=== PATIENT | male | born 1990 | race Caucasian/White ===

== ENCOUNTER 2022-04-06 06:42 | Inpatient (IN) | payer SELFPAY ==
[2022-04-06 06:46] VITALS: BP 92/64; PULSE 119; RESP 16; TEMP 35.8; O2SAT 98; BMI 24.0
--- NOTE | 2022-04-06 06:55 | EX.ED.SAOD ---
HPI History of Present Illness Chief Complaint: Substance Abuse Informant: patient Narrative Narrative: Patient requesting detox from heroin, fentanyl, methamphetamine. He does not use alcohol. His last use of opiates was around 6 or 7 hours ago and does not feel like he is in withdrawal right now but knows it is coming and wants to get detoxed. He denies any recent illness or injury. Only other symptom is a small wound on his chest in the middle of his surgical scar that has been there for a couple weeks. He was seen at an outside hospital, had a culture done and was placed on doxycycline recently. He states it is not very painful, occasionally a little sore. He had open chest surgery a year or 2 ago because of a bad tricuspid valve as a result of using IV drugs. He did use some IV drugs after his surgery, but he states he has not used any in about a year. He snorts everything now. [facility] Medical History Chest pain Hepatitis IVDU (intravenous drug user) Smoker Substance abuse Home Medications doxycycline monohydrate 100 mg tablet 100 mg PO BID 04/06/22 [History Last Taken Unknown] Allergy/AdvReac Type Severity Reaction Status Date / Time risperidone [From Risperdal] AdvReac Severe Other Verified 04/06/22 06:45 Surgical History H/O tricuspid valve repair Social History (Updated 04/06/22 @ 08:[address] Ora Hinojosa MD) household members: family current occupational status: unemployed Smoking Status: Current every day smoker tobacco type: cigarettes alcohol intake: never substance use type: opiates, IV drugs and methamphetamine ROS ROS ED Constitutional Constitutional ED: Denies chills or fever(s) Eyes Eyes: Denies change in vision or diplopia ENT ENT ED: Denies rhinorrhea or sore throat Cardiovascular Cardiovascular: Denies chest pain or palpitations Respiratory/Chest Respiratory/Chest: Denies cough or dyspnea Gastrointestinal Gastrointestinal: Denies abdominal pain, diarrhea, nausea or vomiting Genitourinary Genitourinary ED: Denies dysuria or hematuria Musculoskeletal Musculoskeletal: Denies back pain or neck pain Integumentary Reports as per HPI and wounds; Denies rash Neurologic Neurologic: Denies headache(s), paresthesias or weakness Psychiatric Psychiatric: Denies anxiety or suicidal thoughts EXAM Physical Exam Const Vital Signs: 04/06/22 06:46 Temperature 96.5 F L Temperature Source Oral Pulse Rate 119 H Respiratory Rate 16 Blood Pressure 92/64 Blood Pressure Mean 73 Pulse Ox 98 Oxygen Delivery Method Room Air Positive well nourished and well developed General Appearance ED: well developed and NAD HEENT Reports moist mucous membranes normocephalic and atraumatic Eyes PERRL and EOMs intact bilaterally Neck full ROM and supple Chest Wall Chest Narrative: Mid sternum surgical scar, small wound in the center of it about 1 cm in diameter, scant amount of blood on it without active discharge, appears to be consistent with pyogenic granuloma. Nontender to superficial palpation. Resp normal respiratory effort and clear to auscultation bilaterally Cardio regular rate, regular rhythm and no murmurs Rate: Negative for tachycardic GI non-tender and non-distended Auscultation: normoactive bowel sounds Palpation: soft Back/Spine no CVA tenderness General Back: other FROM Extremity normal to inspection General Extremety ED: Negative for edema, pulses abnormal or tenderness General Extremity: Negative for edema or pulses abnormal Neuro oriented x3, CN's II-XII intact bilaterally and no sensory deficits noted Sensorium / Orientation: awake and alert Motor Exam: strength 5/5 throughout Skin no rashes or lesions noted and no wounds MDM MDM MDM Narrative Medical decision making narrative: I swabbed the surface of the pyogenic granuloma because it initially it looked like a purulent abscess but it is not. It is nonemergent but may require procedural intervention such as cauterization or excision. Basic labs and urine drug screen, alcohol are ordered, plan is for admission to the detox program. The last time he went through detox was August of this year. Lab Data Attestation: I reviewed the patient's lab results. Discharge Plan Dx/Rx/DC Orders Clinical Impression: Opiate dependence, Polysubstance abuse, Pyogenic granuloma Disposition Disposition: Acute Care [facility]
--- NOTE | 2022-04-06 07:31 | PCM.HP.STD ---
HPI - General General Date of Admission: 04/06/22 Date of Service: 04/06/22 Chief Complaint: Request for medical stabilization for acute opioid withdrawal HPI Narrative ALAN CALLES, is a 31 M who presents requesting for medical stabilization for opioid detox. Patient has past medical history of chronic hepatitis C, not on treatment, history of tricuspid valve repair for infective endocarditis, polysubstance use?uses heroin/fentanyl/meth amphetamines. He has been using this for more than 11 years, on and off. Patient was recently in detox in August 2021. He stated that he remained sober for probably about 120 days. He last used about half a gram of heroin/fentanyl/meth about 1 AM prior to coming to the emergency room. Patient denied any acute symptoms now. He also has a sternal wound/ulcer that has been present for months, recently put on doxycycline. He denies any fever or chills or chest pain Patient's vitals in the ED showed blood pressure of 92/64, heart rate 119, respiratory 16, temperature 96.5 F, oxygen saturation 98% on room air. WBC count was 12.3, hemoglobin 14.1, platelet count 202, with neutrophilia. Sodium is 138, potassium 3.5, chloride 108, bicarbonate 19, BUN 14, creatinine 1.85, no previous creatinine to compare. Total bilirubin was 1.30, AST 47, ALT 98. Urine tox showed amphetamines and ecstasy. Wound cultures taken in the ED. [facility] History (Updated 04/06/22 @ 13:[address] Ora Hinojosa MD) Chest pain Hepatitis IVDU (intravenous drug user) Smoker Substance abuse Home Medications doxycycline monohydrate 100 mg tablet 100 mg PO BID 04/06/22 [History Last Taken Unknown] Allergy/AdvReac Type Severity Reaction Status Date / Time risperidone [From Risperdal] AdvReac Severe Other Verified 04/06/22 06:45 Family History no significant family his no significant family history Surgical History H/O tricuspid valve repair Social History (Updated 04/06/22 @ 08:[address] Ora Hinojosa MD) household members: family current occupational status: unemployed Smoking Status: Current every day smoker tobacco type: e-cigarettes alcohol intake: never substance use type: opiates, IV drugs and methamphetamine ROS ROS Narrative Constitutional: Denies: Anorexia, Chills, Fever, Night Sweats, Weight Change Eyes: Denies: Blurred vision, Cataracts, Conjunctivae Inflammation, Pain, Redness, Vision Change HEENT: Denies: Difficulty Hearing, Difficulty Swallowing, Head Aches, Hearing Changes, Sinus Congestion, Sinus Drainage Cardiovascular: Denies: Chest Pain, Orthopnea, Palpitations Respiratory: Denies: Cough, Shortness of breath at rest, Sputum production Gastrointestinal: Denies: Abdominal Pain, Nausea, Vomiting Genitourinary: Denies: Dysuria Musculoskeletal: Denies: Joint Pain, Joint stiffness, Joint swelling, Joint Tenderness Skin: See HPI Neurological: Denies: Numbness, Tingling, Focal weakness Vital Signs Vital Signs Vital Signs: 04/06/22 06:46 Temperature 96.5 F L Temperature Source Oral Pulse Rate 119 H Respiratory Rate 16 Blood Pressure 92/64 Blood Pressure Mean 73 Pulse Ox 98 Oxygen Delivery Method Room Air Weight Weight: 80.6 kg Body Mass Index (BMI) 24.0 Physical Exam Narrative Physical exam: General: Alert, Oriented x3, Cooperative, appears calm, not pale, no jaundice HEENT: Atraumatic Oral: Moist Mucosa Neck: Supple Lungs: Diminished to auscultation Cardiovascular: HS I+II, regular, no murmurs Abdomen: Bowel Sounds Present, Soft, Non Tender Extremities: No edema Skin: No rashes, No breakdown Neurological: Grossly intact Psych/Mental Status: Appropriate Results Lab / Micro Data Result Diagrams: 04/06/22 07:43 04/06/22 07:30 Assessment & Plan Assessment/Plan (1) Polysubstance (including opioids) dependence with physiol dependence: (2) Pyogenic granuloma of skin: PLAN: Plan 1. Request for medical stabilization for acute opioid withdrawal Admit to [facility], continue to monitor on the Subutex withdrawal protocol Addiction social work consult 2. Pyogenic granuloma, chronic, general surgery consulted, status post bedside debridement, Appreciate recommendations Continue on oral doxycycline 3. Nicotine dependence, renal replacement 4. History of tricuspid valve endocarditis, status post mitral valve repair 5. DVT prophylaxis?low risk, early ambulation recommended Charges/Coding Visit Charges Inpatient E&M: 59972 Init Hosp L3
[2022-04-06 07:44] VITALS: BP 122/71; PULSE 106; RESP 18; TEMP 36.5; O2SAT 100
[2022-04-06] MEDS: Ondansetron ODT 4 MG Tablet 8 MG PO (07:49)
[2022-04-06 07:50] VITALS: BP 122/71; PULSE 110; RESP 18; O2SAT 100
[2022-04-06 07:53] LABS: Absolute Lymphocyte Count 1.07 X10^3/uL (0.83-4.51); Absolute Neutrophil Count 9.9 X10^3/uL (2.0-7.7); Basophil# 0.04 X10^3/uL; Basophil% 0.3 % (0-1); Eosinophil# 0.14 X10^3/uL; Eosinophils% 1.1 % (0-5); Hematocrit 39.8 % (40-54); Hemoglobin 14.1 g/dL (13.0-16.5); Lymphocyte # 1.07 X10^3/ul (0.83-4.51); Lymphocyte % 8.7 % (19-41); Mean Corp Hgb Conc 35.4 g/dL (32-36); Mean Corpuscular Hgb 30.1 pg (27.0-32.0); Monocyte# 1.13 X10^3/uL; Monocyte% 9.2 % (0-10); NRBC Flagged by Analyzer 0 % (0-5); Neutrophil # 9.86 X10^3/uL (2.7-7.7); Neutrophil % 80.2 % (47-70); Platelet Count 202 K/mm3 (150-450); RBC Distribution Width CV 15.3 % (11.6-14.6); RBC Distribution Width SD 47.6 fl (35.1-43.9); Red Blood Count 4.68 M/mm3 (4.6-6.2); White Blood Count 12.3 K/mm3 (4.4-11.0)
[2022-04-06 08:09] LABS: AST(SGOT) 47 U/L (15-37); Alanine Aminotransfer ALT/SGPT 98 U/L (16-61); Albumin, Serum 3.8 g/dL (3.2-5.0); Alkaline Phosphatase 111 U/L (45-117); Anion Gap 11 (5-15); BUN 14 mg/dL (7-18); BUN/Creat Ratio 7.6 RATIO (10-20); Calcium,Total 8.5 mg/dL (8.5-10.1); Chloride 108 mmol/L (98-107); Creatinine, Serum 1.85 mg/dL (0.70-1.30); EST Glomerular Filtration Rate 45 mL/min (>60); Est Glom Filt Rate - Afr Amer 55 mL/min (>60); Globulin 3.9 g/dL (2.2-4.2); Glucose 102 mg/dL (74-106); Potassium 3.5 mmol/L (3.5-5.1); Protein, Total 7.7 g/dL (6.4-8.2); Sodium Level 138 mmol/L (136-145)
[2022-04-06 08:13] LABS: Alcohol, Blood (Medical)-Serum < 3.0 mg/dL
[2022-04-06 08:16] LABS: Amphetamine Urine VISTA POSITIVE (<1000 ng/mL); Barbiturate Urine VISTA NEGATIVE (< 200 ng/mL); Benzodiazepine Urine VISTA NEGATIVE (< 200 ng/mL); Cocaine Urine VISTA NEGATIVE (< 300 ng/mL); Ecstacy Urine VISTA POSITIVE (< 500 ng/mL); Methadone Urine VISTA NEGATIVE (< 300 ng/mL); PCP Urine VISTA NEGATIVE (< 25 ng/mL); THC Urine VISTA NEGATIVE (< 50 ng/mL); Vista UDS pH Range 5
--- NOTE | 2022-04-06 09:12 | PCM.OPRPT ---
Problems Associated Problem List Diagnoses (1) Pyogenic granuloma of skin: Report of Operation Date of Procedure: 04/06/22 Pre-Operative Diagnosis: Pyogenic granuloma Post-Operative Diagnosis: Same Surgery/Procedure Performed:: Superficial debridement of pyogenic granuloma Surgeon: Erwin Kumar manager primary care: None Type of Anesthesia: None Estimated Blood Loss (mL): <1cc Description of Procedure: Center chest area was a centimeter and a half pyogenic granuloma. Cleaned the area off with alcohol. Debrided superficial fat virtually no blood loss was identified. Irrigated out the wound with some peroxide. Placed a wet-to-dry dressing in the wound. Dimensions were 1 and half centimeters by 7 mm deep. This was all superficial. Admit VTE Documentation VTE Present on Admission: No VTE Mechan Device Prophylaxis: None VTE Pharm Prophylaxis ordered?: No Reason prophylaxis not ordered:: Treatment Not Indicated
[2022-04-06 09:17] VITALS: BP 113/67; PULSE 89; RESP 16; TEMP 36.3; O2SAT 100; BMI 23.6
[2022-04-06 15:46] VITALS: BP 123/66; PULSE 79; RESP 18; TEMP 36.8; O2SAT 98
[2022-04-06] MEDS: Doxycycline 100 MG CAPSULE PO (15:48)
[2022-04-06] MEDS: Loperamide 2 MG Capsule PO (18:49)
[2022-04-06] MEDS: Buprenorphine HCl 2 MG TAB.SUBL SL (18:49)
[2022-04-06] MEDS: hydrOXYzine PAM 25 MG Capsule 50 MG PO (18:49)
[2022-04-06] MEDS: Methocarbamol 750 MG Tablet 1500 MG PO (18:49)
[2022-04-06] MEDS: Dicyclomine 10 MG Capsule 20 MG PO (18:49)
[2022-04-06 20:42] VITALS: BP 113/75; PULSE 80; RESP 16; TEMP 37; O2SAT 98
[2022-04-06] MEDS: cloNIDine HCl 0.1 MG Tablet PO (20:57)
[2022-04-07 02:02] VITALS: BP 104/65; PULSE 74; RESP 16; TEMP 36.4; O2SAT 98
[2022-04-07] MEDS: Buprenorphine HCl 2 MG TAB.SUBL SL ×3 (02:05→18:39)
[2022-04-07] MEDS: Methocarbamol 750 MG Tablet 1500 MG PO ×2 (02:05→22:30)
[2022-04-07] MEDS: Doxycycline 100 MG CAPSULE PO ×2 (06:06→15:50)
--- NOTE | 2022-04-07 07:37 | PN.HOSP_ITS ---
Subjective Subjective Seen and examined. Patient has history of IV substance use on and off for last 12 years. He was barely using IV fentanyl and heroin. He also has history of endocarditis with tricuspid valve repair. Patient was diagnosed hepatitis C in the past, had not had any treatment. Objective Data Objective Data Vital Signs: Vital Signs Temp Pulse Resp BP Pulse Ox O2 Del Method 97.6 F L 74 16 104/65 98 Room Air 04/07/22 02:02 04/07/22 02:02 04/07/22 02:02 04/07/22 02:02 04/07/22 02:02 04/07/22 02:02 Oxygen Delivery Method Room Air Weight: 174 lb 9.698 oz Body Mass Index (BMI) 23.6 Lab / Micro Data Result Diagrams: 04/07/22 07:30 04/07/22 08:50 Labs: Laboratory Results - last 24 hr 04/06/22 07:30: Sodium 138, Potassium 3.5, Chloride 108 H, Carbon Dioxide 19.0 L , Anion Gap 11, BUN 14, Creatinine 1.85 H, Estim Creat Clear Calc 63.50, Est GFR (MDRD) Af Amer 55 L, Est GFR (MDRD) Non-Af 45 L, BUN/Creatinine Ratio 7.6 L, Glucose 102, Calcium 8.5, Total Bilirubin 1.30 H, AST 47 H, ALT 98 H, Alkaline Phosphatase 111, Total Protein 7.7, Albumin 3.8, Globulin 3.9, Albumin/Globulin Ratio 1.0 04/06/22 07:30: Ethyl Alcohol < 3.0 04/06/22 07:43: WBC 12.3 H, RBC 4.68, Hgb 14.1, Hct 39.8 L, MCV 85.0, MCH 30.1, MCHC 35.4, RDW Std Deviation 47.6 H, RDW Coeff of Lidya 15.3 H, Plt Count 202, MPV 10.0, Immature Gran % (Auto) 0.500, Neut % (Auto) 80.2 H, Lymph % (Auto) 8.7 L, [place] % (Auto) 9.2, Eos % (Auto) 1.1, Baso % (Auto) 0.3, Absolute Neuts (auto) 9.9 H, Absolute Lymphs (auto) 1.07, Nucleated RBC % 0 04/06/22 07:55: Urine Opiates Screen NEGATIVE, Urine Methadone Screen NEGATIVE, Ur Barbiturates Screen NEGATIVE, Ur Phencyclidine Scrn NEGATIVE, Ur Amphetamines Screen POSITIVE H, MDMA (Ecstasy) Screen POSITIVE H, U Benzodiazepines Scrn NEGATIVE, Urine Cocaine Screen NEGATIVE, U Cannabinoids Screen NEGATIVE, Ur Drug Screen Comment Micro: Microbiology 04/06/22 08:00 Wound - Chest Gram Stain - Final Physical Exam Narrative Complaint of diarrhea, abdominal cramps. Hot and cold feeling. General: Alert, Oriented x3, Cooperative HEENT: Atraumatic, PERRLA, EOMI, Normocephalic Oral: No Gingival or Mucosal Lesions/ Ulcerations Neck: Supple, No JVD, Negative Carotid Bruits Chest/lungs: Surgical dressing over chest is dry. Had superficial debridement of pyogenic granuloma. Air entry equal in bilateral lung bases. No crepitation/rhonchi Cardiovascular: Regular rate, Regular Rhythm, Normal S1, Normal S2, No murmurs Abdomen: Bowel Sounds Present, Soft, Non Tender, Non-Distended : No renal angle tenderness. No suprapubic tenderness. Extremities: No edema, Capillary Refill Less than 3 Seconds Skin: No rashes, No breakdown Musculoskeletal: No Tenderness to Palpation of Joints or Extremities Neurological: Cranial nerves II-XII grossly intact, DTR 2+/4 and Symmetrical, Neuro grossly intact Psych/Mental Status: Flat affect Assessment & Plan Assessment/Plan (1) Polysubstance (including opioids) dependence with physiol dependence: (2) Pyogenic granuloma of skin: PLAN: Plan This is 31-year-old woman with history of chronic IV heroin and IV fentanyl use for last 20 years, changed to snorting in August 2021 admitted for medical stabilization of acute opioid withdrawal syndrome 1. Acute opioid withdrawal syndrome with history of chronic opioid use, dependence and tolerance: Patient admitted to MedSurg floor. On buprenorphine based other supportive medication protocol. Monitor CINA and COWS score. assistant housekeeping manager consulted. 2. Pyogenic granuloma, chronic, general surgery consulted, status post bedside debridement on 04/06. Continue on oral doxycycline 3. Nicotine dependence, renal replacement 4. History of tricuspid valve endocarditis, status post tricuspid valve repair 5. Chronic hepatitis C: Outpatient follow-up for treatment. DVT prophylaxis?low risk, early ambulation recommended Charges/Coding Visit Charges Inpatient E&M: 88963 Subs Hosp L2
[2022-04-07 08:00] VITALS: BP 105/72; PULSE 68; RESP 16; TEMP 36.6; O2SAT 100
[2022-04-07 08:22] LABS: Absolute Lymphocyte Count 1.93 X10^3/uL (0.83-4.51); Absolute Neutrophil Count 4.7 X10^3/uL (2.0-7.7); Basophil# 0.04 X10^3/uL; Basophil% 0.5 % (0-1); Differential Indicated SCAN CRITERIA MET; Eosinophil# 0.46 X10^3/uL; Hematocrit 40.5 % (40-54); Hemoglobin 14.1 g/dL (13.0-16.5); Lymphocyte # 1.93 X10^3/ul (0.83-4.51); Lymphocyte % 25.1 % (19-41); Mean Corp Hgb Conc 34.8 g/dL (32-36); Mean Corpuscular Hgb 30.1 pg (27.0-32.0); Mean Corpuscular Volume 86.4 fL (80-94); Mean Platelet Vol. 11.5 fl (6.2-12.0); Monocyte# 0.53 X10^3/uL; Monocyte% 6.9 % (0-10); NRBC Flagged by Analyzer 0 % (0-5); Neutrophil # 4.72 X10^3/uL (2.7-7.7); Neutrophil % 61.4 % (47-70); POSITIVE COUNT YES; RBC Distribution Width CV 15.5 % (11.6-14.6); RBC Distribution Width SD 48.5 fl (35.1-43.9); Red Blood Count 4.69 M/mm3 (4.6-6.2); White Blood Count 7.7 K/mm3 (4.4-11.0)
[2022-04-07 08:23] LABS: Platelet Estimate MOD DEC (ADEQ)
[2022-04-07 09:25] LABS: ALB/GLOB Ratio 0.8 RATIO (0.9-2.4); AST(SGOT) 36 U/L (15-37); Alanine Aminotransfer ALT/SGPT 77 U/L (16-61); Albumin, Serum 3.3 g/dL (3.2-5.0); Alkaline Phosphatase 121 U/L (45-117); Anion Gap 6 (5-15); BUN 17 mg/dL (7-18); BUN/Creat Ratio 12.1 RATIO (10-20); Calcium,Total 8.9 mg/dL (8.5-10.1); Chloride 111 mmol/L (98-107); EST Glomerular Filtration Rate 63 mL/min (>60); Est Glom Filt Rate - Afr Amer 76 mL/min (>60); Estimated Creatinine Clearance 83.91 ml/min; Glucose 101 mg/dL (74-106); Potassium 3.5 mmol/L (3.5-5.1); Protein, Total 7.3 g/dL (6.4-8.2); Sodium Level 141 mmol/L (136-145)
--- NOTE | 2022-04-07 10:31 | WOUNDNOTE ---
wound photo: mid upper chest
[2022-04-07 15:46] VITALS: BP 104/65; PULSE 65; RESP 16; TEMP 36.8; O2SAT 98
[2022-04-07] MEDS: Acetaminophen 500 MG Tablet PO (15:53)
[2022-04-07 22:15] VITALS: BP 121/70; PULSE 64; RESP 16; TEMP 36.6; O2SAT 98
[2022-04-07] MEDS: Dicyclomine 10 MG Capsule 20 MG PO (22:30)
[2022-04-07] MEDS: cloNIDine HCl 0.1 MG Tablet PO (22:30)
[2022-04-08 03:15] VITALS: BP 111/63; PULSE 55; RESP 16; TEMP 36.4; O2SAT 98
[2022-04-08] MEDS: Buprenorphine HCl 2 MG TAB.SUBL SL ×3 (03:19→18:00)
[2022-04-08] MEDS: Doxycycline 100 MG CAPSULE PO ×2 (06:18→17:59)
[2022-04-08 08:31] VITALS: BP 116/67; PULSE 60; RESP 18; TEMP 36.6; O2SAT 100
[2022-04-08 10:00] VITALS: PULSE 80
[2022-04-08] MEDS: cloNIDine HCl 0.1 MG Tablet PO ×2 (10:38→18:00)
[2022-04-08] MEDS: Gabapentin 300 MG Capsule PO (10:38)
--- NOTE | 2022-04-08 13:50 | PN.HOSP_ITS ---
Subjective Subjective Patient has mild anxiety and restlessness. Semisolid. Symptoms gradually getting better. Objective Data Objective Data Vital Signs: Vital Signs Temp Pulse Resp BP Pulse Ox O2 Del Method 97.8 F 80 18 116/67 100 Room Air 04/08/22 08:31 04/08/22 10:00 04/08/22 08:31 04/08/22 08:31 04/08/22 08:31 04/08/22 08:31 Oxygen Delivery Method Room Air Weight: 174 lb 9.698 oz Body Mass Index (BMI) 23.6 Lab / Micro Data Result Diagrams: 04/07/22 07:30 04/07/22 08:50 Micro: Microbiology 04/06/22 08:00 Wound - Chest Gram Stain - Final 04/06/22 08:00 Wound - Chest Wound Culture - Final Meth. resistant Staph. aureus Physical Exam Narrative Physical exam General: Alert, Oriented x3, Cooperative HEENT: Atraumatic, PERRLA, EOMI, Normocephalic Oral: No Gingival or Mucosal Lesions/ Ulcerations Neck: Supple, No JVD, Negative Carotid Bruits Chest/lungs: Surgical dressing over chest is dry. Air entry equal in bilateral lung bases. No crepitation/rhonchi Cardiovascular: Regular rate, Regular Rhythm, Normal S1, Normal S2, No murmurs Abdomen: Bowel Sounds Present, Soft, Non Tender, Non-Distended : No renal angle tenderness. No suprapubic tenderness. Extremities: No edema, Capillary Refill Less than 3 Seconds Skin: No rashes, No breakdown Musculoskeletal: No Tenderness to Palpation of Joints or Extremities Neurological: Cranial nerves II-XII grossly intact, DTR 2+/4 and Symmetrical, Neuro grossly intact Psych/Mental Status: Flat affect Assessment & Plan Assessment/Plan (1) Polysubstance (including opioids) dependence with physiol dependence: (2) Pyogenic granuloma of skin: PLAN: Plan This is 31-year-old woman with history of chronic IV heroin and IV fentanyl use for last 20 years, changed to snorting in August 2021 admitted for medical stabilization of acute opioid withdrawal syndrome 1. Acute opioid withdrawal syndrome with history of chronic opioid use, dependence and tolerance: Patient admitted to MedSurg floor. On buprenorphine based other supportive medication protocol. Monitor CINA and COWS score. medicine and health service manager consulted. 04/08: Mild diarrhea getting better. CINA score 3 2. Pyogenic granuloma, chronic, general surgery consulted, status post bedside debridement on 04/06. Continue on oral doxycycline 3. Nicotine dependence, renal replacement 4. History of tricuspid valve endocarditis, status post tricuspid valve repair 5. Chronic hepatitis C: Outpatient follow-up for treatment. DVT prophylaxis?low risk, early ambulation recommended Charges/Coding Visit Charges Inpatient E&M: 81557 Subs Hosp L2
--- NOTE | 2022-04-08 15:54 | CHAPLAIN ---
Type of Pastoral Visit _x__ Initial Visit ___ Follow-up Visit ___ On-call Visit ___ General Patient Visit ___ Spiritual Assessment ___ Family Conference ___ Bereavement ___ Rapid Response ___ Code Blue ___ Other (describe below) Pastoral Care Referral From _x__ Patient ___ Family ___ Nurse ___ Physician ___ Cable Tool Operator ___ Insole Reinforcer ___ Other (describe below) Sacrament/Intervention ___ Active listening ___ Anointing ___ Jewish ___ Bereavement ___ Communion ___ Petra exploration ___ ___ Life review ___ Prayer ___ Reconciliation ___ Sacrament of Sick ___ Supportive presence ___ Wedding ___ Other (describe below) Pastoral Comments patient awakens easily to his name when entering room; pt states that he needs to sleep if possible but visit tomorrow would be welcome; prayer is also welcomed
[2022-04-08 16:00] VITALS: BP 113/68; PULSE 70; RESP 18; TEMP 36.6; O2SAT 99
[2022-04-08] MEDS: Methocarbamol 750 MG Tablet 1500 MG PO (18:00)
[2022-04-08 21:07] VITALS: BP 115/62; PULSE 62; RESP 18; TEMP 36.6; O2SAT 100
[2022-04-09 03:23] VITALS: BP 117/75; PULSE 60; RESP 18; TEMP 36.4; O2SAT 99
[2022-04-09] MEDS: Doxycycline 100 MG CAPSULE PO (06:32)
[2022-04-09] MEDS: Buprenorphine HCl 2 MG TAB.SUBL SL (06:32)
--- NOTE | 2022-04-09 09:02 | DCINST_ITS ---
Discharge Instructions Diet Discharge Diet: No restrictions Activity Discharge Activity: Return to Normal Activity and May Not Drive Weight Bearing Status: Weight bearing as tolerated Dressing / Incision Call your doctor if you observe: Fever of 101 or Higher, Coldness, Increased Pain, Numbness or Tingling, Change in Color, Inability to urinate, Inability to have a bowel movement, Shortness of breath, Dizziness, Fainting spells, Swelling in the ankles, Chest pain and Calf discomfort Follow Up Care Test Results: Test results from this visit will be discussed in further detail at your follow- up appointment, if applicable. Discharge Plan Admission Admit Date/Time: 04/06/22 07:27 Primary Reason for Your Visit: Acute opioid withdrawal syndrome Attending Provider: Kevin Raman Primary Care Provider: Care ,Haley Primary Consulting Providers: Erwin Kumar ; Ora Hinojosa Discharge Orders/Prescriptions Prescriptions: New nicotine 21 mg/24 hr Patch 24 Hour 21 mg transdermal DAILY Qty: 30 0RF Continued doxycycline monohydrate 100 mg Tablet 100 mg PO BID Qty: 10 0RF Referrals / Follow Up: Care Physician,No Primary [Primary Care Provider] - Disposition Disposition (needs filled in before D/C Order can be placed): Home, Self Care
[2022-04-09 09:15] VITALS: BP 103/61; PULSE 62; RESP 18; TEMP 36.3; O2SAT 97
--- NOTE | 2022-04-09 09:18 | DS.PCM_ITS ---
Providers Date of Admission: 04/06/22 Date of Discharge: 04/09/22 Primary Care Physician: Haley Primary Care Phys Consultations 04/06/22 09:15 Consult: Onc/Wound/brewery cellar worker Routine Comment: Reason for Consult:: Wound on chest Comments:: Send patient to wound center post discharge 04/06/22 09:26 Consult: General Surgery Routine Consulting Provider: Erwin Kumar Reason for Consult: Sternal pyogenic granuloma EMERGENT Consult: No MD Notified: Yes Date Notified: 04/06/22 Time Notified: 08:14 Method of Notification: Verbal Reason For Visit: REQUEST FOR MEDICAL STABILISATION Diagnosis Discharge Diagnosis (1) Polysubstance (including opioids) dependence with physiol dependence: Status: Acute Code(s): F19.20 - Other psychoactive substance dependence, uncomplicated (2) Pyogenic granuloma of skin: Status: Acute Code(s): L98.0 - Pyogenic granuloma Medications at Discharge Home Medications doxycycline monohydrate 100 mg tablet 100 mg PO BID #10 tabs 04/09/22 nicotine 21 mg/24 hr daily transdermal patch 21 mg transdermal DAILY #30 ea 04/09/22 Hospital Course Summary of Care Provided Hospital Course: This is 31-year-old woman with history of chronic IV heroin and IV fentanyl use for last 20 years, changed to snorting in August 2021 admitted for medical stabilization of acute opioid withdrawal syndrome 1.? Acute opioid withdrawal syndrome with history of chronic opioid use, dependence and tolerance: Patient admitted to MedSurg floor.? On buprenorphine based other supportive medication protocol.? Monitor CINA and COWS score.? lands resource manager consulted. 04/08: Mild diarrhea getting better.? CINA score 3 2. Pyogenic granuloma, chronic, general surgery consulted, status post bedside debridement on 04/06. Wound cultures growing MRSA. As patient has been on doxycycline before admission therefore antibiotic changed to Bactrim DS 1 tablet twice daily for 5 more days. On wound review, mild serous discharge with healthy subcutaneous tissue. 3. Nicotine dependence, renal replacement 4.? History of tricuspid valve endocarditis, status post tricuspid valve repair 5.? Chronic hepatitis C: Outpatient follow-up for treatment. ? DVT prophylaxis?low risk, early ambulation recommended Discharge medication reconciliation done. Discharge follow-up instructions completed. Discharge process discussed with the patient and all questions were answered to patient's satisfaction. Prescriptions given for doxycycline and nicotine patch. Advised to follow-up with outpatient opioid/substance use rehab Total time spent, exact 35 minutes on discharge meds reconciliation, examination, coordination of care with nurses and ancillary staff, review of imaging and blood test and discussion with the patient on follow-up instructions. Physical Exam Narrative Seen and examined on the day of discharge. Physical exam General: Alert, Oriented x3, Cooperative HEENT: Atraumatic, PERRLA, EOMI, Normocephalic Oral: No Gingival or Mucosal Lesions/ Ulcerations Neck: Supple, No JVD, Negative Carotid Bruits Chest/lungs: Lower sternal region chest pain Air entry equal in bilateral lung bases. No crepitation/rhonchi Cardiovascular: Regular rate, Regular Rhythm, Normal S1, Normal S2, No murmurs Abdomen: Bowel Sounds Present, Soft, Non Tender, Non-Distended : No renal angle tenderness. No suprapubic tenderness. Extremities: No edema, Capillary Refill Less than 3 Seconds Skin: Wound reviewed over sternal region. Serous discharge with healthy subcutaneous tissue. Musculoskeletal: No Tenderness to Palpation of Joints or Extremities Neurological: Cranial nerves II-XII grossly intact, DTR 2+/4 and Symmetrical, Neuro grossly intact Psych/Mental Status: Normal affect Weight / BMI Weight Weight: 174 lb 9.698 oz Body Mass Index (BMI) 23.6 ABG / Lab / Microbiology Data Result Diagrams: 04/07/22 07:30 04/07/22 08:50 Microbiology: Microbiology 04/06/22 08:00 Wound - Chest Gram Stain - Final 04/06/22 08:00 Wound - Chest Wound Culture - Final Meth. resistant Staph. aureus D/C Instructions Discharge Diet: No restrictions Weight Bearing Status: Weight bearing as tolerated Call your doctor if you observe: Fever of 101 or Higher, Coldness, Increased Pain, Numbness or Tingling, Change in Color, Inability to urinate, Inability to have a bowel movement, Shortness of breath, Dizziness, Fainting spells, Swelling in the ankles, Chest pain and Calf discomfort Meaningful Use Info Meaningful Use Diagnoses (Choose all that apply): None applicable Discharge Plan Admission Admit Date/Time: 04/06/22 07:27 Primary Reason for Your Visit: Acute opioid withdrawal syndrome Attending Provider: Kevin Raman Primary Care Provider: Care Physician,No Primary Consulting Providers: Erwin Kumar ; Ora Hinojosa Discharge Orders/Prescriptions Prescriptions: New nicotine 21 mg/24 hr Patch 24 Hour 21 mg transdermal DAILY Qty: 30 0RF Continued doxycycline monohydrate 100 mg Tablet 100 mg PO BID Qty: 10 0RF Referrals / Follow Up: Care Physician,No Primary [Primary Care Provider] - Disposition Disposition (needs filled in before D/C Order can be placed): Home, Self Care Charges/Coding Visit Charges Inpatient E&M: 36777 Disch Hosp
[2022-04-09 10:00] VITALS: PULSE 70
--- NOTE | 2022-04-09 10:52 | CASEMGMT ---
Social Work Consult: Self Pay Referral source: Self referral due to self pay status This social sciences chair met with patient in room. Introduced self and social sciences chair role. Patient agreeable to speak with this social sciences chair. This social sciences chair broached topic of self pay status for patient. Patient reports to have had Medicaid in the past but I must have let is . Patient reports to still have food stamps. Patient reports to be aware of how to apply for Medicaid. This social sciences chair did provided patient with Medicaid application and resources and free clinics that are local to patient. This social sciences chair also provided patient with information on prescription assistance programs. This social sciences chair encouraged patient to complete Medicaid application and this can assist patient in medical bills for the future as well as this medical stay. Patient voiced understanding and plan to complete medicaid application. Patient denies any other needs/concerns and plans to follow up with an outpatient program for substance abuse in [place]. Patient reports to have worked with this program in the past and it has helped. Patient reports to have transportation to home but can't get a ride until 4 today. This social sciences chair provided active support and listening. No further social work needs identified or indicated. PLAN: D/C to the community for follow up with substance abuse supports. Martin TAN, LISA
--- NOTE | 2022-04-09 12:11 | CHAPLAIN ---
Type of Pastoral Visit ___ Initial Visit _x__ Follow-up Visit ___ On-call Visit ___ General Patient Visit ___ Spiritual Assessment ___ Family Conference ___ Bereavement ___ Rapid Response ___ Code Blue ___ Other (describe below) Pastoral Care Referral From _x__ Patient ___ Family ___ Nurse ___ Physician ___ Signal Maintainer ___ Mobile Electronics Installer ___ Other (describe below) Sacrament/Intervention _x__ Active listening ___ Anointing ___ Orthodox ___ Bereavement ___ Communion ___ Petra exploration ___ ___ Life review _x__ Prayer ___ Reconciliation ___ Sacrament of Sick _x__ Supportive presence ___ Wedding ___ Other (describe below) Pastoral Comments return to patient today after he requested come back tomorrow on visit yesterday when he was trying to sleep; pt is awake now and watching TV; pt says he is leaving soon and will follow up with IOP in [place]; pt states that he has had a season of being clean and that he has support among his family including mother and sisters; pt is affirmed for continual work to beat the addiction and to seek out support and strengthen his petra; pt identifies self as a Bahai and welcomes prayer; visit included asking the patient questions which he answered willingly; pt does not engage much on his own for conversation;
--- NOTE | 2022-04-09 14:14 | PHA.DC.MC ---
Pharmacy Service has performed discharge medication reconciliation and counseling for this patient. Patient does not want nicotine patch and refused to be counseled on the medication. 1. BACTRIM DS 1T PO BID X 5 DAYS The patient's discharge medication list was reviewed for discrepancies and discrepancies were resolved. Home Medications nicotine 21 mg/24 hr daily transdermal patch 21 mg transdermal DAILY #30 ea 04/09/22 sulfamethoxazole 800 mg-trimethoprim 160 mg tablet (Bactrim DS) 1 tab PO BID #10 tabs 04/09/22 The patient was counseled on the following discharge medications and changes in medications for homegoing were reviewed. The Reason for Use, instructions for use, and potential side effects were reviewed for all new medications. The patient's questions regarding all of their medications were answered. The patient was able to verbally demonstrate an understanding of their discharge medications. Patient counseled by pharmacy sales representativePino.
--- NOTE | 2022-04-09 14:26 | CASEMGMT ---
Social Work SW was approached by pt nurse who asked about assistance for the patient to get prescriptions. SW called the pharmacy to check on one time prescription benefit for pt and they explained only one of his px would be covered for a total of $11.63. Sw spoke to pt and he stated he could cover this and would not need the benefit at this time. Pt stated he did not want the nicotine patches for the other prescription anyway. MIS Laguna
== END 2022-04-09 16:30 | disposition home or self-care (01) | DRG 897 ==
LOC: ED 07:38 → MS3 08:49
PROVIDERS: Admitting Provider Internal Medicine; Emergency Provider Emergency Medicine; Visit Provider Internal Medicine
DX: F11.23 Opioid dependence with withdrawal (principal); B18.2 Chronic viral hepatitis C; F17.290 Nicotine dependence, other tobacco product, uncomplicated; L98.0 Pyogenic granuloma; B95.62 Methicillin resistant Staphylococcus aureus infection as the cause of diseases classified elsewhere
CPT/HCPCS: 36415; 80053; 80307; 82077; 85025; 87070; 87077; 87186; 87205; 99283

== ENCOUNTER 2023-09-30 15:32 | Inpatient (IN) | payer MEDICAID, SELFPAY ==
[2023-09-30] VITALS (7 sets, daily range): BP systolic 122–137; BP diastolic 84–107; PULSE 76–89; RESP 10–22; TEMP 36.4–36.5; O2SAT 97–100; BMI 26.6; BMI 29.1
--- NOTE | 2023-09-30 15:52 | NURSING ---
NO OLD EKGS
--- NOTE | 2023-09-30 15:57 | EKG12_ITS ---
Test Reason : CP Blood Pressure : / mmHG Vent. Rate : 083 BPM Atrial Rate : 083 BPM P-R Int : 154 ms QRS Dur : 100 ms QT Int : 396 ms P-R-T Axes : 049 -04 053 degrees QTc Int : 465 ms Normal sinus rhythm Normal ECG Confirmed by Jackson Hernandez ([id number]), acquisition editor VY TRACY ([id number]) on 10/01/2023 8:06:36 AM Referred By: MUNIRA Confirmed By:Jackson Hernandez
--- NOTE | 2023-09-30 16:15 | ED.VIS.CHEST ---
HPI History of Present Illness Chief Complaint: Chest Pain Narrative Narrative: 32-year-old male presenting for opiate detox. He states he used fentanyl and Xanax quite frequently.He has a past medical history of endocarditis and osteomyelitis of the sternum. He states he had open heart surgery in [place] in 2018 for this. He states that he lived in [place] for only a short time but is actually from the area locally here. Patient states that he does have chronic chest pain and has had pain in his chest since June. He states the pain is just to the right side of the sternum. He states he has been getting most of his care at [facility] where he sees a infectious disease physician for history of hep C. He also states he saw animal impersonator but he did not think he was very thorough so he was referred by his infectious disease physician to [facility] audiology or he had follow-up just in the last week. He states the surgical wires that were used in his chest were removed in January of last year and this may be the source of his pain. Denies [place] history. Patient had a CTA of the chest done on 08 September which showed bilateral groundglass opacities concerning for multifocal infectious inflammatory process. He states he tested negative for COVID, flu, influenza and is on azithromycin for pneumonia which he states was bilateral. His CTA also showed that he had right ventricular enlargement there was also noted to be a deformity of the sternum with the cerclage wires in place there was no evidence of osteomyelitis at that point. He had an echo performed 09/10/2023 which showed moderate RV dilatation and hypokinesis with moderate to moderately severe tricuspid regurgitation without pulmonary hypertension and an EF of 50%. Patient also newly given referrals for [facility] cardiology not made these appointments because he has been getting high and request detox today. [facility] Medical History (Updated 09/30/23 @ 18:[address] Kristal Echevarria, DO) Chest pain Hepatitis IVDU (intravenous drug user) Pulmonary embolism Smoker Substance abuse Home Medications nicotine 21 mg/24 hr daily transdermal patch 21 mg transdermal DAILY #30 ea 04/09/22 [Rx Last Taken Unknown] sulfamethoxazole 800 mg-trimethoprim 160 mg tablet (Bactrim DS) 1 tab PO BID #10 tabs 04/09/22 [Rx Last Taken 09/30/23] propranolol 20 mg tablet 20 mg PO DAILY 09/30/23 [History Last Taken 09/30/23] Allergy/AdvReac Type Severity Reaction Status Date / Time risperidone [From Risperdal] AdvReac Severe Other Verified 09/30/23 15:33 Surgical History H/O tricuspid valve repair Social History (Updated 09/30/23 @ 18:[address] Kristal Echevarria DO) household members: family current occupational status: unemployed Smoking Status: Current every day smoker tobacco type: e-cigarettes alcohol intake: never substance use type: opiates, methamphetamine, prescription drug and other details: Benzodiazepines ROS ROS ED Constitutional Constitutional ED: Denies chills, fever(s) or sweats Eyes Eyes: Denies blurry vision or change in vision ENT ENT ED: Denies ear pain or sore throat Cardiovascular Cardiovascular: Reports chest pain; Denies palpitations or racing heartbeat Respiratory/Chest Respiratory/Chest: Denies cough, dyspnea or sputum Gastrointestinal Gastrointestinal: Denies abdominal pain, constipation, diarrhea, nausea or vomiting Genitourinary Genitourinary ED: Denies dysuria, hematuria or urinary frequency Musculoskeletal Musculoskeletal: Denies arthralgias, myalgias or neck pain Integumentary Denies abscess, Abrasions or rash Neurologic Neurologic: Denies headache(s), paresthesias or weakness Psychiatric Psychiatric: Denies anxiety, depression, suicidal ideation or suicidal thoughts Endocrine Endocrinology: Denies polydipsia or polyuria EXAM Physical Exam Const Vital Signs: 09/30/23 15:34 09/30/23 15:36 09/30/23 15:57 Temperature 97.5 F L 97.5 F L Temperature Source Temporal Temporal Pulse Rate 85 85 Respiratory Rate 16 16 Respiratory Effort Normal Blood Pressure 137/95 H 137/95 H Blood Pressure Mean 109 109 Pulse Ox 100 100 Oxygen Delivery Method Room Air Room Air 09/30/23 16:43 09/30/23 16:43 09/30/23 17:45 Temperature Temperature Source Pulse Rate 78 89 Respiratory Rate 10 L 22 H Respiratory Effort Blood Pressure 122/107 H Blood Pressure Mean 112 Pulse Ox 99 97 Oxygen Delivery Method Room Air Room Air Room Air Positive well nourished General Appearance ED: NAD; Negative for pallor HEENT Reports TM's clear and moist mucous membranes normocephalic and atraumatic Tympanic Membrane ED: Yes TM's clear Eyes PERRL Chest Wall Chest Narrative: Tenderness palpation right parasternal region. Equal symmetric breath sounds chest wall rise. Resp normal respiratory effort and clear to auscultation bilaterally Auscultation: Negative for rales, rhonchi or wheezes Cardio regular rate and regular rhythm Back/Spine no CVA tenderness Neuro oriented x3 Sensorium / Orientation: awake and alert Motor Exam: strength 5/5 throughout Psych mental status grossly normal Skin no rashes or lesions noted General Skin Exam: Negative for jaundice or pallor MDM MDM MDM Narrative Medical decision making narrative: Patient with long-term chest pain which is already been evaluated. He does have cardiac history so we will obtain a troponin, EKG, chest x-ray to rule out acute etiology. Recently treated for pneumonia however CT read showed multifocal infiltrates. Patient not have any fevers or chills currently but states he did have a fever at the time he was diagnosed. Ultimately patient requested opioid detox.Drug screen and EtOH will be obtained. Screening lab work for detox will be obtained. White blood cell count shows leukopenia with a white blood cell count of 4.3. Hemoglobin stable 14.7. Renal function and electrolytes within normal limits. High-sensitivity troponin is 3. EKG on my interpretation shows a normal sinus rhythm with a ventricular rate of 83 bpm without sign of ischemic change or ectopy. Chest x-ray my interpretation shows no acute process. The radiologist states that there is in continuity of the sternal wires however patient had procedure done at [facility]. He has follow-up for this specifically. Drug screen positive for amphetamines, MDMA, amphetamines. He also admits to fentanyl. Patient's workup ultimately normal otherwise. Discussed with hospitalist for admission. Impression: 1. Chest pain 2. Presented for opioid detox. Lab Data Attestation: I reviewed the patient's lab results. Labs: Laboratory Results - last 24 hr 09/30/23 09/30/23 16:35 17:00 WBC 4.3 L RBC 4.89 Hgb 14.7 Hct 44.4 MCV 90.8 MCH 30.1 MCHC 33.1 RDW Std Deviation 39.5 RDW Coeff of Lidya 11.9 Plt Count 154 MPV 10.4 Immature Gran % (Auto) 0.500 Neut % (Auto) 73.8 H Lymph % (Auto) 16.8 L Runnels % (Auto) 3.7 Eos % (Auto) 4.7 Baso % (Auto) 0.5 Absolute Neuts (auto) 3.2 Absolute Lymphs (auto) 0.72 L Nucleated RBC % 0 Sodium 140 Potassium 4.1 Chloride 109 H Carbon Dioxide 24.0 Anion Gap 7 BUN 20 H Creatinine 1.19 Estim Creat Clear Calc 97.82 Est GFR (MDRD) Af Amer 91 Est GFR (MDRD) Non-Af 75 BUN/Creatinine Ratio 16.8 Glucose 91 Calcium 9.0 Troponin I High Sens 3 Urine Opiates Screen NEGATIVE Urine Methadone Screen NEGATIVE Ur Barbiturates Screen NEGATIVE Ur Phencyclidine Scrn NEGATIVE Ur Amphetamines Screen POSITIVE H MDMA (Ecstasy) Screen POSITIVE H U Benzodiazepines Scrn POSITIVE H Urine Cocaine Screen NEGATIVE U Cannabinoids Screen NEGATIVE Ur Drug Screen Comment Ethyl Alcohol < 3.0 Radiography Diagnostic Testing: Clinical Impression(s) from Imaging Studies Chest X-Ray 09/30/23 16:38 IMPRESSION: No acute cardiopulmonary pathology status post median sternotomy. Incidental finding is lack of continuity of the sternal wires of uncertain etiology although possibly due to trauma or infection However clinical correlation is recommended and CT for further evaluation if indicated Electronically Signed: Dipesh Mac MD at 16:51 EST , Discharge Plan Disposition Disposition: Acute Care [facility] Discharge Date/Time: 09/30/23 19:04
[2023-09-30] MEDS: Aspirin 81 MG TAB.CHEW 324 MG PO (16:37)
--- NOTE | 2023-09-30 16:38 | RAD_ITS ---
STUDY: X-RAY CHEST REASON FOR EXAM: Male, 32 years old. chest pain TECHNIQUE: AP portable COMPARISON: None. FINDINGS: The lungs are clear and expanded. There is no demonstrated pleural abnormality. Postop change status post median sternotomy Normal size heart. Normal mediastinum and braulio. Normal visualized pulmonary arteries. Normal visualized aortic arch and descending thoracic aorta. Normal visualized thoracic spine. Normal visualized ribs, clavicles, and shoulders. There is no demonstrated abnormality of the visualized soft tissue structures of the upper abdomen. RAD/Chest 1 View (Portable) IMPRESSION: No acute cardiopulmonary pathology status post median sternotomy. Incidental finding is lack of continuity of the sternal wires of uncertain etiology although possibly due to trauma or infection However clinical correlation is recommended and CT for further evaluation if indicated Electronically Signed: Dipesh Mac MD at 16:51 EST ,
[2023-09-30 16:51] LABS: Absolute Lymphocyte Count 0.72 X10^3/uL (0.83-4.51); Absolute Neutrophil Count 3.2 X10^3/uL (2.0-7.7); Basophil# 0.02 X10^3/uL; Basophil% 0.5 % (0-1); Eosinophils% 4.7 % (0-5); Hematocrit 44.4 % (40-54); Hemoglobin 14.7 g/dL (13.0-16.5); Lymphocyte # 0.72 X10^3/ul (0.83-4.51); Lymphocyte % 16.8 % (19-41); Mean Corp Hgb Conc 33.1 g/dL (32-36); Mean Corpuscular Hgb 30.1 pg (27.0-32.0); Mean Corpuscular Volume 90.8 fL (80-94); Mean Platelet Vol. 10.4 fl (6.2-12.0); Monocyte# 0.16 X10^3/uL; Monocyte% 3.7 % (0-10); NRBC Flagged by Analyzer 0 % (0-5); Neutrophil # 3.17 X10^3/uL (2.7-7.7); Neutrophil % 73.8 % (47-70); Platelet Count 154 K/mm3 (150-450); RBC Distribution Width CV 11.9 % (11.6-14.6); RBC Distribution Width SD 39.5 fl (35.1-43.9); Red Blood Count 4.89 M/mm3 (4.6-6.2); White Blood Count 4.3 K/mm3 (4.4-11.0)
[2023-09-30 17:04] LABS: Alcohol, Blood (Medical)-Serum < 3.0 mg/dL
[2023-09-30 17:17] LABS: Anion Gap 7 (5-15); BUN 20 mg/dL (7-18); BUN/Creat Ratio 16.8 RATIO (10-20); Chloride 109 mmol/L (98-107); Creatinine, Serum 1.19 mg/dL (0.70-1.30); EST Glomerular Filtration Rate 75 mL/min (>60); Est Glom Filt Rate - Afr Amer 91 mL/min (>60); Estimated Creatinine Clearance 97.82 ml/min; Glucose 91 mg/dL (74-106); Potassium 4.1 mmol/L (3.5-5.1); Sodium Level 140 mmol/L (136-145); Troponin-I HS 3 pg/mL (3.0-78.0)
[2023-09-30 17:41] LABS: Amphetamine Urine VISTA POSITIVE (<1000 ng/mL); Barbiturate Urine VISTA NEGATIVE (< 200 ng/mL); Benzodiazepine Urine VISTA POSITIVE (< 200 ng/mL); Cocaine Urine VISTA NEGATIVE (< 300 ng/mL); Ecstacy Urine VISTA POSITIVE (< 500 ng/mL); Methadone Urine VISTA NEGATIVE (< 300 ng/mL); PCP Urine VISTA NEGATIVE (< 25 ng/mL); THC Urine VISTA NEGATIVE (< 50 ng/mL); Vista UDS pH Range 6
--- NOTE | 2023-09-30 18:20 | NURSING ---
DR BARGER FOR DR GARNER
--- NOTE | 2023-09-30 18:23 | HP.PCM.HOS_ITS ---
HPI - General General Date of Admission: 09/30/23 Date of Service: 09/30/23 Chief Complaint: opiate detox HPI Narrative ALAN CALLES, is a 32 M who presented to the emergency department at [facility] for opiate and benzodiazepine detox. Patient has had a long history of drug use and admits to daily fentanyl and Xanax use. He uses about 1 g of fentanyl a day and upwards of 2 g of Xanax daily. Last use of fentanyl was day of admission. Last use of Xanax was the day prior to admission. He is currently not having any significant withdrawal symptoms as of yet. 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 He has had issues with infection postoperatively at his sternotomy site and currently follows with infectious disease as an outpatient (Dr. Hanh Cortez--> last visit 09/18/23 and pt to remain on bactrim daily for 4 weeks until he follows up with her). He also has outpatient follow- up with cardiology in [place] at [facility]. He also admits to tobacco use and methamphetamine use periodically. Vital signs on admission showed temperature of 97.7, heart rate is 80, blood pressure is 127/84 and oxygen saturations are 100% on room air. CBC shows mild leukopenia with a white count of 4.3 and a mild left shift with a neutrophilia of 73.8. Chemistry panel was overall unremarkable. Troponin was normal at 3. Toxicology screen was positive for amphetamines, ecstasy, and benzodiazepine. At the alcohol level was less than 3. Chest x-ray was unremarkable for any acute findings. EKG shows normal sinus rhythm with normal intervals and no ST-T wave changes concerning for acute ischemia. [facility] Medical History (Updated 09/30/23 @ 18:[address] Kristal Echevarria, DO) Chest pain Hepatitis IVDU (intravenous drug user) Pulmonary embolism Smoker Substance abuse Home Medications nicotine 21 mg/24 hr daily transdermal patch 21 mg transdermal DAILY #30 ea 04/09/22 [Rx Last Taken Unknown] sulfamethoxazole 800 mg-trimethoprim 160 mg tablet (Bactrim DS) 1 tab PO BID #10 tabs 04/09/22 [Rx Last Taken 09/30/23] propranolol 20 mg tablet 20 mg PO DAILY 09/30/23 [History Last Taken 09/30/23] Allergy/AdvReac Type Severity Reaction Status Date / Time risperidone [From Risperdal] AdvReac Severe Other Verified 09/30/23 15:33 Surgical History H/O tricuspid valve repair Social History (Updated 09/30/23 @ 18:[address] Kristal Echevarria DO) household members: family current occupational status: unemployed Smoking Status: Current every day smoker tobacco type: e-cigarettes alcohol intake: never substance use type: opiates, methamphetamine, prescription drug and other details: Benzodiazepines ROS Constitutional Constitutional: Denies anorexia, change in weight, chills, fatigue, fever(s), malaise, night sweats, weakness or other Eyes Eyes: Denies blurry vision, change in eye color, change in vision, discharge from eye(s), double vision, erythema, eye pain, loss of vision or other ENT HEENT: Denies abnormal hearing, dysphagia, ear pain, epistaxis, headache(s), hearing loss, nasal congestion, nasal discharge, post nasal drip, sinus pressu re, sore throat or other Cardiovascular Cardiovascular: Reports chest pain; Denies claudication, dyspnea on exertion, edema, lightheadedness, orthopnea, palpitations, paroxysmal nocturnal dyspnea, rapid heart rate, syncope or other Respiratory/Chest Respiratory/Chest: Denies cough, dyspnea, excessive phlegm production, hemoptysis, productive cough, shortness of breath at rest, shortness of breath with exertion, wheezing or other Gastrointestinal Gastrointestinal: Denies abdominal pain, coffee ground emesis, constipation, diarrhea, dyspepsia, hematemesis, hematochezia, loose stools, melena, nausea, vomiting or other Genitourinary Genitourinary: Denies burning urination, difficulty urinating, dysuria, hematuria, nocturia, urinary frequency, urinary hesitancy, urinary incontinence, urinary urgency or other Musculoskeletal Musculoskeletal: Denies arthralgias, back pain, joint pain, joint stiffness, joint swelling, myalgias, neck pain or other Neurologic Neurologic: Denies abnormal gait, abnormal speech, confusion, disequilibrium, dizziness, focal weakness, headache(s), numbness, paresthesias, seizure-like activity, seizures, syncope, tingling, tremor(s) or other Psychiatric Psychiatric: Denies anxiety, depression, homicidal ideation, suicidal ideation or other Endocrine Endocrinology: Denies change in body appearance, cold intolerance, excessive sweating, heat intolerance, polydipsia, polyuria or other Hematologic/Lymphatic Hematologic/Lymphatic: Denies anemia, easy bleeding, easy bruising, lymphadenopathy or other Allergic/Immunologic Allergic/Immunologic: Denies rhinitis, hives, eczemia, asthma or other Vital Signs Vital Signs Vital Signs: 09/30/23 15:34 09/30/23 15:36 09/30/23 15:57 Temperature 97.5 F L 97.5 F L Temperature Source Temporal Temporal Pulse Rate 85 85 Respiratory Rate 16 16 Respiratory Effort Normal Blood Pressure 137/95 H 137/95 H Blood Pressure Mean 109 109 Pulse Ox 100 100 Oxygen Delivery Method Room Air Room Air 09/30/23 16:43 09/30/23 16:43 09/30/23 17:45 Temperature Temperature Source Pulse Rate 78 89 Respiratory Rate 10 L 22 H Respiratory Effort Blood Pressure 122/107 H Blood Pressure Mean 112 Pulse Ox 99 97 Oxygen Delivery Method Room Air Room Air Room Air Weight Weight: 88.9 kg Body Mass Index (BMI) 26.6 Physical Exam Const alert, oriented x3, no apparent distress, average body habitus and well nourished Constitutional Narrative: Young middle-aged, white male, sitting up in bed, appears comfortable nontoxic, very pleasant General Appearance: cooperative HEENT normocephalic, head/scalp atraumatic, hearing grossly normal bilaterally and moist oral mucous membranes HEENT Narrative: Mallampati 2, no thrush Resp normal respiratory effort, no retractions, no use of accessory muscles and clear to auscultation bilaterally Auscultation: Negative for rales, rhonchi or wheezes Cardio regular rate, regular rhythm, S1 normal heart sound, S2 normal heart sound, no rub, no gallops and no clicks Cardio Narrative: 2+ diastolic murmur noted on exam GI normal to inspection, nondistended, normoactive bowel sounds, soft to palpation and non-tender Extremity no clubbing, cyanosis or edema Extremity Narrative: Pedal pulses are 2+, radial pulses are 2+ Skin Skin Narrative: Scattered areas of mild folliculitis noted on bilateral arms Neuro oriented x3, moves all extremities and no focal motor deficits Speech: speech normal Psych Psych Narrative: Affect is slightly flattened mood seems mildly depressed however patient interacts appropriately and eye contact is good Results Lab / Micro Data 09/30/23 16:35 09/30/23 16:35 Labs: Laboratory Results - last 24 hr 09/30/23 16:35: WBC 4.3 L, RBC 4.89, Hgb 14.7, Hct 44.4, MCV 90.8, MCH 30.1, MCHC 33.1, RDW Std Deviation 39.5, RDW Coeff of Lidya 11.9, Plt Count 154, MPV 10.4, Immature Gran % (Auto) 0.500, Neut % (Auto) 73.8 H, Lymph % (Auto) 16.8 L, [place] % (Auto) 3.7, Eos % (Auto) 4.7, Baso % (Auto) 0.5, Absolute Neuts (auto) 3.2, Absolute Lymphs (auto) 0.72 L, Nucleated RBC % 0, Sodium 140, Potassium 4.1, Chloride 109 H, Carbon Dioxide 24.0, Anion Gap 7, BUN 20 H, Creatinine 1.19, Estim Creat Clear Calc 97.82, Est GFR (MDRD) Af Amer 91, Est GFR (MDRD) Non-Af 75, BUN/Creatinine Ratio 16.8, Glucose 91, Calcium 9.0, Troponin I High Sens 3, Ethyl Alcohol < 3.0 09/30/23 17:00: Urine Opiates Screen NEGATIVE, Urine Methadone Screen NEGATIVE, Ur Barbiturates Screen NEGATIVE, Ur Phencyclidine Scrn NEGATIVE, Ur Amphetamines Screen POSITIVE H, MDMA (Ecstasy) Screen POSITIVE H, U Benzodiazepines Scrn POSITIVE H, Urine Cocaine Screen NEGATIVE, U Cannabinoids Screen NEGATIVE, Ur Drug Screen Comment Imaging Radiology Impression Chest X-Ray 09/30/23 16:38 IMPRESSION: No acute cardiopulmonary pathology status post median sternotomy. Incidental finding is lack of continuity of the sternal wires of uncertain etiology although possibly due to trauma or infection However clinical correlation is recommended and CT for further evaluation if indicated Electronically Signed: Dipesh Mac MD at 16:51 EST Reading Location ID and State: [facility] / [place] Tel , Service support , Assessment & Plan Assessment/Plan (1) Opiate abuse, continuous: (2) Desire for detoxification: PLAN: Plan Opiate abuse -Patient presented for detox -Uses fentanyl upwards of 1 g a day -Last use was the day of admission -Start Subutex taper per [facility]OWS protocol -Supportive medications as needed -180 consultation for assistance with discharge planning -Social work/case management consultation for assistance with discharge planning Benzodiazepine abuse -Patient states he uses upwards of 2 g of Xanax a day -Last use was yesterday -Start phenobarbital taper -Supportive medications -180 consult for assistance with discharge planning Chronic chest pain -Patient has history of open heart surgery which was done in [place] -Sounds like this was related to endocarditis and IVDU -Surgery was in 2017 -Has had chronic pain since June and has follow-up with cardiology at [facility] with pending appointment -Patient had recent CTA of his chest that showed right ventricular enlargement and a deformity in the sternum with the cerclage wires in place and no evidence of osteomyelitis -Echocardiogram was done on 09/10/2023 that showed moderate RV dilation and hypokinesis with moderate to moderately severe tricuspid regurgitation but without pulmonary hypertension and an EF of 50% -Recommend outpatient follow-up with cardiology as previously instructed 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 -Has been undergoing treatment since 11/17/2022 for 2 areas that did not completely heal -Patient was seen by CT surgery for possible debridement and repeat sternal closure -Patient was in fpc and at that time received courses of Bactrim, rifampin, and topical Bactroban -Underwent surgical debridement of the wound on 12/29/2022 with 3 sternal wires removed dissection was carried down to the sternum and he was treated with vancomycin lavaging the area -CT was done in 04/05/2023 of his chest and showed phlegmon that had developed in his postop site and he was treated with clindamycin--> then treated with dalbavancin on 04/24/2023 and 05/01/2023 and clindamycin was eventually restarted -Following with infectious disease--> Dr. Hanh Cortez with last note reviewed in [facility] from 09/18/2023--> recommended Bactrim x 7 days which has been completed then Bactrim daily ongoing with 4-week follow-up seeing infectious disease Recent pneumonia -Chest x-ray clear in the emergency department -Patient completed oral antibiotics History of endocarditis secondary to IVDU -History of open heart surgery in [place] in 2018 -Continue outpatient follow-up as previously recommended -Had tricuspid valve repair -Endocarditis and bacteremia were secondary to MRSA with resultant endocarditis, pericarditis, and pneumonia History of Hepatitis C -Continue outpatient follow-up with infectious disease -Patient has completed treatment and been declared cured from HCV on 09/09/2023 with negative viral load History of pulmonary embolism -This was provoked and postoperative in [place] when he had his open heart surgery -Patient's not currently anticoagulated and had recent CT that was negative for PE Polysubstance abuse -Recommend cessation -See above Tobacco abuse -Nicotine patch 21 mg -Recommend cessation DVT prophylaxis -Low risk -Recommend early and frequent ambulation CODE STATUS -Full code Charges/Coding Visit Charges Inpatient E&M: 20442 Init Hosp L2
--- NOTE | 2023-09-30 18:26 | NURSING ---
MED SURG [facility] OPIOD DETOX
[2023-09-30] MEDS: traZODone 100 MG Tablet PO (20:35)
[2023-09-30] MEDS: Methocarbamol 750 MG Tablet PO (20:35)
[2023-09-30] MEDS: Phenobarbital 32.4 MG Tablet 64.7999999999999972 MG PO (20:35)
[2023-09-30] MEDS: Buprenorphine HCl 2 MG TAB.SUBL SL (20:35)
[2023-09-30] MEDS: Mupirocin Ointment 22gm Tube 1 APPLIC NASAL (20:35)
[2023-10-01] MEDS: Phenobarbital 32.4 MG Tablet 64.7999999999999972 MG PO ×6 (00:37→20:24)
[2023-10-01 04:30] VITALS: BP 137/88; PULSE 92; RESP 18; TEMP 36.6; O2SAT 98
[2023-10-01] MEDS: Buprenorphine HCl 2 MG TAB.SUBL SL ×3 (04:48→20:23)
[2023-10-01] MEDS: Methocarbamol 750 MG Tablet PO (08:56)
[2023-10-01] MEDS: hydrOXYzine PAM 25 MG Capsule 50 MG PO (08:56)
[2023-10-01] MEDS: Mupirocin Ointment 22gm Tube 1 APPLIC NASAL ×2 (08:58→20:28)
[2023-10-01] MEDS: Propranolol 10 MG Tablet 20 MG PO (08:58)
[2023-10-01] MEDS: Smz/Tmp Ds Tablet 1 TABLET PO (08:58)
[2023-10-01 09:08] VITALS: BP 115/69; PULSE 86; RESP 18; TEMP 36.7; O2SAT 100
[2023-10-01 09:11] VITALS: BP 115/69; PULSE 86; RESP 18; TEMP 36.7; O2SAT 100
--- NOTE | 2023-10-01 11:00 | PCM.PN.HOSP ---
Subjective Subjective No issues overnight, Cina score of 8 this morning Objective Data Objective Data Vital Signs: Vital Signs Temp Pulse Resp BP Pulse Ox O2 Del Method 98.1 F 86 18 115/69 100 Room Air 10/01/23 09:08 10/01/23 09:08 10/01/23 09:08 10/01/23 09:08 10/01/23 09:08 10/01/23 09:08 Oxygen Delivery Method Room Air Weight: 215 lb Body Mass Index (BMI) 29.1 Lab / Micro Data 09/30/23 16:35 09/30/23 16:35 Labs: Laboratory Results - last 24 hr 09/30/23 16:35: WBC 4.3 L, RBC 4.89, Hgb 14.7, Hct 44.4, MCV 90.8, MCH 30.1, MCHC 33.1, RDW Std Deviation 39.5, RDW Coeff of Lidya 11.9, Plt Count 154, MPV 10.4, Immature Gran % (Auto) 0.500, Neut % (Auto) 73.8 H, Lymph % (Auto) 16.8 L, [place] % (Auto) 3.7, Eos % (Auto) 4.7, Baso % (Auto) 0.5, Absolute Neuts (auto) 3.2, Absolute Lymphs (auto) 0.72 L, Nucleated RBC % 0, Sodium 140, Potassium 4.1, Chloride 109 H, Carbon Dioxide 24.0, Anion Gap 7, BUN 20 H, Creatinine 1.19, Estim Creat Clear Calc 97.82, Est GFR (MDRD) Af Amer 91, Est GFR (MDRD) Non-Af 75, BUN/Creatinine Ratio 16.8, Glucose 91, Calcium 9.0, Troponin I High Sens 3, Ethyl Alcohol < 3.0 09/30/23 17:00: Urine Opiates Screen NEGATIVE, Urine Methadone Screen NEGATIVE, Ur Barbiturates Screen NEGATIVE, Ur Phencyclidine Scrn NEGATIVE, Ur Amphetamines Screen POSITIVE H, MDMA (Ecstasy) Screen POSITIVE H, U Benzodiazepines Scrn POSITIVE H, Urine Cocaine Screen NEGATIVE, U Cannabinoids Screen NEGATIVE, Ur Drug Screen Comment Radiography Diagnostic Testing: Radiology Impression Chest X-Ray 09/30/23 16:38 IMPRESSION: No acute cardiopulmonary pathology status post median sternotomy. Incidental finding is lack of continuity of the sternal wires of uncertain etiology although possibly due to trauma or infection However clinical correlation is recommended and CT for further evaluation if indicated Electronically Signed: Dipesh Mac MD at 16:51 EST Reading Location ID and State: [facility] / [place] Tel , Service support , Physical Exam Narrative General: Alert, Oriented x3, Cooperative, No apparent distress HEENT: Atraumatic, PERRLA, EOMI, Normocephalic Oral: Moist Mucosa Neck: Supple, No JVD Lungs: Clear to auscultation, Normal air movement, No rhonchi, No wheeze, No rales Cardiovascular: Regular rate, Regular Rhythm, Normal S1, Normal S2, No murmurs Abdomen: Soft, Non Tender, Non-Distended, No Hepato-splenomegaly Extremities: No edema, Capillary Refill Less than 3 Seconds Skin: No rashes, No breakdown Musculoskeletal: No Tenderness to Palpation of Joints or Extremities Neurological: No focal neurological deficits, Motor Exam 5/5 strength throughout, Sensory exam intact to light touch and pain Psych/Mental Status: Normal Affect, Appropriate Assessment & Plan Assessment/Plan (1) Opiate abuse, continuous: (2) Desire for detoxification: PLAN: Plan 1. Opiate abuse and benzodiazepine abuse with acute withdrawal/history of endocarditis/tobacco abuse ? Continue with the opiate withdrawal protocol ? Continue with the alcohol/benzo withdrawal protocol ? Follow-up with 180 to establish outpatient care ? He has a history of endocarditis with chronic pain since then, follows with [facility]. This has been complicated with sternotomy infections that has been managed elsewhere ? Discussed cessation, continue with nicotine patch ? She has completed treatment for hepatitis C and has a negative viral load DVT: Ambulation Charges/Coding Visit Charges Inpatient E&M: 50914 Subs Hosp L2
--- NOTE | 2023-10-01 11:59 | ADDICTION ---
clinician met with client to discuss tx plan upon discharge. client was open and cooperative, however, reported feeling bad . client stated he is currently attendin aftercare twice weekly and individual counseling at [facility] in [place]. client requested this clinician schedule a follow up counseling appointment; client signed ori for this agency. clinician contacted [facility]; counseling appointment for 10/08/23 at 2:00 with Sharonda. client was given appointment card for this appointment.
--- NOTE | 2023-10-01 13:14 | CASEMGMT ---
Social Work SW spoke w/pg due to his self pay status. Pt states he just reapplied for Medicaid a couple of days ago, and the person from [employer] is supposed to be helping him. He does not need the assist of [employer] at this time. SW gave pt resources, including [facility] assist, Prescription assist, and two lists of [facility] Resources. SW remains available for additional resources if needed. LISA Hill
--- NOTE | 2023-10-01 14:50 | CHAPLAIN ---
Type of Pastoral Visit ___ Initial Visit ___ Follow-up Visit ___ On-call Visit ___ General Patient Visit ___ Spiritual Assessment ___ Family Conference ___ Bereavement ___ Rapid Response ___ Code Blue ___ Other (describe below) Pastoral Care Referral From ___ Patient ___ Family ___ Nurse ___ Physician ___ Generator Mechanic ___ Furnace Repair Mechanic ___ Other (describe below) Sacrament/Intervention ___ Active listening ___ Anointing ___ Zoroastrian ___ Bereavement ___ Communion ___ Petra exploration ___ ___ Life review ___ Prayer ___ Reconciliation ___ Sacrament of Sick ___ Supportive presence ___ Wedding ___ Other (describe below) Pastoral Comments patient is sleeping and did not awaken to his name; left a written calling code for pt;
[2023-10-01 16:52] VITALS: BP 127/79; PULSE 86; RESP 18; TEMP 36.6; O2SAT 98
[2023-10-01 20:30] VITALS: BP 130/87; PULSE 82; RESP 16; TEMP 36.6; O2SAT 97
[2023-10-01] MEDS: traZODone 100 MG Tablet PO (20:36)
[2023-10-01] MEDS: Dicyclomine 10 MG Capsule 20 MG PO (20:36)
[2023-10-01] MEDS: Gabapentin 300 MG Capsule PO (20:36)
[2023-10-02] VITALS (9 sets, daily range): BP systolic 106–128; BP diastolic 70–86; PULSE 67–96; RESP 16; TEMP 36.4–36.6; O2SAT 95–100
[2023-10-02] MEDS: Phenobarbital 32.4 MG Tablet 64.7999999999999972 MG PO ×6 (05:03→20:41)
[2023-10-02] MEDS: Buprenorphine HCl 2 MG TAB.SUBL SL ×3 (05:03→20:41)
[2023-10-02] MEDS: Propranolol 10 MG Tablet 20 MG PO (08:18)
[2023-10-02] MEDS: Smz/Tmp Ds Tablet 1 TABLET PO (08:18)
[2023-10-02] MEDS: Mupirocin Ointment 22gm Tube 1 APPLIC NASAL ×2 (08:18→20:41)
--- NOTE | 2023-10-02 11:22 | PCM.PN.HOSP ---
Subjective Subjective Doing well, no issues overnight. Cina score of 0 Objective Data Objective Data Vital Signs: Vital Signs Temp Pulse Resp BP Pulse Ox O2 Del Method 97.6 F L 88 16 122/85 H 100 Room Air 10/02/23 08:41 10/02/23 08:51 10/02/23 08:41 10/02/23 08:41 10/02/23 08:41 10/02/23 08:41 Oxygen Delivery Method Room Air Weight: 215 lb Body Mass Index (BMI) 29.1 Intake & Output: Intake and Output for Last 24 Hours 10/01/23 10/02/23 10/03/23 03:59 03:59 03:59 Intake Total 1280 / 1280 200 / 200 Balance 1280 / 1280 200 / 200 Lab / Micro Data 09/30/23 16:35 09/30/23 16:35 Physical Exam Narrative General: Alert, Oriented x3, Cooperative, No apparent distress HEENT: Atraumatic, PERRLA, EOMI, Normocephalic Oral: Moist Mucosa Neck: Supple, No JVD Lungs: Clear to auscultation, Normal air movement, No rhonchi, No wheeze, No rales Cardiovascular: Regular rate, Regular Rhythm, Normal S1, Normal S2, No murmurs Abdomen: Soft, Non Tender, Non-Distended, No Hepato-splenomegaly Extremities: No edema, Capillary Refill Less than 3 Seconds Skin: No rashes, No breakdown Musculoskeletal: No Tenderness to Palpation of Joints or Extremities Neurological: No focal neurological deficits, Motor Exam 5/5 strength throughout, Sensory exam intact to light touch and pain Psych/Mental Status: Normal Affect, Appropriate Assessment & Plan Assessment/Plan (1) Opiate abuse, continuous: (2) Desire for detoxification: PLAN: Plan 1. Opiate abuse and benzodiazepine abuse with acute withdrawal/history of endocarditis/tobacco abuse ? Continue with the opiate withdrawal protocol ? Continue with the alcohol/benzo withdrawal protocol ? Follow-up with 180 to establish outpatient care ? He has a history of endocarditis with chronic pain since then, follows with [facility]. This has been complicated with sternotomy infections that has been managed elsewhere ? Discussed cessation, continue with nicotine patch ? He has completed treatment for hepatitis C and has a negative viral load DVT: Ambulation Charges/Coding Visit Charges Inpatient E&M: 09938 Subs Hosp L2
--- NOTE | 2023-10-02 15:04 | ADDICTION ---
clinician met with client. client was cooperative, however, he is feeling frustrated by still being in detox and he is missing my family . clinician briefly assisted client in processing emotions. client continues to be agreeable to following up with [facility] in [place] for twice weekly aftercare and individual counseling.
[2023-10-03] MEDS: Phenobarbital 32.4 MG Tablet 64.7999999999999972 MG PO ×3 (00:42→10:22)
[2023-10-03 04:05] VITALS: BP 100/70; PULSE 75; RESP 16; TEMP 36.4; O2SAT 100
[2023-10-03] MEDS: Smz/Tmp Ds Tablet 1 TABLET PO (08:53)
[2023-10-03] MEDS: Buprenorphine HCl 2 MG TAB.SUBL SL (08:53)
[2023-10-03] MEDS: Mupirocin Ointment 22gm Tube 1 APPLIC NASAL (08:54)
--- NOTE | 2023-10-03 09:41 | DCINST_ITS ---
Discharge Instructions Diet Discharge Diet: No restrictions Activity Discharge Activity: Return to Normal Activity Dressing / Incision Call your doctor if you observe: Fever of 101 or Higher, Shortness of breath, Dizziness, Fainting spells, Swelling in the ankles, Chest pain and Increased palpitations (irregular heartbeat) Follow Up Care Test Results: Test results from this visit will be discussed in further detail at your follow- up appointment, if applicable. Discharge Plan Admission Admit Date/Time: 09/30/23 18:21 Attending Provider: Michael Morris Primary Care Provider: Care Physician,Haley Primary Consulting Providers: Kristal Echevarria Discharge Orders/Prescriptions Prescriptions: Continued nicotine 21 mg/24 hr Patch 24 Hour 21 mg transdermal DAILY Qty: 30 0RF sulfamethoxazole-trimethoprim [Bactrim DS] 800-160 mg tablet 1 tab PO BID Qty: 10 0RF propranolol 20 mg tablet 20 mg PO DAILY Patient Comments: TAKE 1 TABLET BY MOUTH TWICE A DAY Referrals / Follow Up: Care Physician,No Primary [Primary Care Provider] - Disposition Disposition (needs filled in before D/C Order can be placed): Home, Self Care
[2023-10-03 10:32] VITALS: BP 105/68; PULSE 98; RESP 18; TEMP 36.8; O2SAT 98
--- NOTE | 2023-10-03 12:51 | DS.PCM_ITS ---
Providers Date of Admission: 09/30/23 Primary Care Physician: No Primary Care Phys Reason For Visit: OPIATE DETOX Diagnosis Discharge Diagnosis (1) Opiate abuse, continuous: Status: Acute Code(s): F11.10 - Opioid abuse, uncomplicated (2) Desire for detoxification: Status: Acute Medications at Discharge Home Medications nicotine 21 mg/24 hr daily transdermal patch 21 mg transdermal DAILY #30 ea 04/09/22 sulfamethoxazole 800 mg-trimethoprim 160 mg tablet (Bactrim DS) 1 tab PO BID #10 tabs 04/09/22 propranolol 20 mg tablet 20 mg PO DAILY 09/30/23 Hospital Course Operations None Procedures None Summary of Care Provided Minutes Spent on Discharge: 31 Hospital Course: Per HPI: ALAN CALLES, is a 32 M who presented to the emergency department at [facility] for opiate and benzodiazepine detox. Patient has had a long history of drug use and admits to daily fentanyl and Xanax use. He uses about 1 g of fentanyl a day and upwards of 2 g of Xanax daily. Last use of fentanyl was day of admission. Last use of Xanax was the day prior to admission. He is currently not having any significant withdrawal symptoms as of yet. 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 He has had issues with infection postoperatively at his sternotomy site and currently follows with infectious disease as an outpatient (Dr. Hanh Cortez--> last visit 09/18/23 and pt to remain on bactrim daily for 4 weeks until he follows up with her). He also has outpatient follow-up with cardiology in [place] at [facility]. He also admits to tobacco use and methamphetamine use periodically. Vital signs on admission showed temperature of 97.7, heart rate is 80, blood pressure is 127/84 and oxygen saturations are 100% on room air. CBC shows mild leukopenia with a white count of 4.3 and a mild left shift with a neutrophilia of 73.8. Chemistry panel was overall unremarkable. Troponin was normal at 3. Toxicology screen was positive for amphetamines, ecstasy, and benzodiazepine. At the alcohol level was less than 3. Chest x-ray was unremarkable for any acute findings. EKG shows normal sinus rhythm with normal intervals and no ST-T wave changes concerning for acute ischemia. Hospital Course: 1. Acute opiate and benzo withdrawal/history of endocarditis/tobacco abuse? 32-year-old male with an extensive drug use history with significant complications including endocarditis, current sternotomy scar infection, history of hepatitis C that has resolved with antiviral therapy presented to the hospital with continued drug use. He went through the opiate and benzodiazepine withdrawal protocol. On the day of discharge she was completely asymptomatic. He has an appointment on with outpatient rehab and I discussed with him his belief on whether or not he will be okay to be discharged today as he would like to go home or if he would need to stay longer given the potential for relapse. He expressed understanding of the risk and benefits of going home and elected to go home today. He will need to continue with his oral antibiotics for his sternotomy scar and follow-up with his PCPs as an outpatient. Physical Exam Narrative General: Alert, Oriented x3, Cooperative, No apparent distress HEENT: Atraumatic, PERRLA, EOMI, Normocephalic Oral: Moist Mucosa Neck: Supple, No JVD Lungs: Clear to auscultation, Normal air movement, No rhonchi, No wheeze, No rales Cardiovascular: Regular rate, Regular Rhythm, Normal S1, Normal S2, No murmurs Abdomen: Soft, Non Tender, Non-Distended, No Hepato-splenomegaly Extremities: No edema, Capillary Refill Less than 3 Seconds Skin: No rashes, No breakdown Musculoskeletal: No Tenderness to Palpation of Joints or Extremities Neurological: No focal neurological deficits, Motor Exam 5/5 strength throughout, Sensory exam intact to light touch and pain Psych/Mental Status: Normal Affect, Appropriate Weight / BMI Weight Weight: 215 lb Body Mass Index (BMI) 29.1 ABG / Lab / Microbiology Data 09/30/23 16:35 09/30/23 16:35 D/C Instructions Discharge Diet: No restrictions Call your doctor if you observe: Fever of 101 or Higher, Shortness of breath, Dizziness, Fainting spells, Swelling in the ankles, Chest pain and Increased palpitations (irregular heartbeat) Meaningful Use Info Meaningful Use Diagnoses (Choose all that apply): None applicable Discharge Plan Admission Admit Date/Time: 09/30/23 18:21 Attending Provider: Michael Morris Primary Care Provider: Care Physician,No Primary Consulting Providers: Kristal Echevarria Discharge Orders/Prescriptions Prescriptions: Continued nicotine 21 mg/24 hr Patch 24 Hour 21 mg transdermal DAILY Qty: 30 0RF sulfamethoxazole-trimethoprim [Bactrim DS] 800-160 mg tablet 1 tab PO BID Qty: 10 0RF propranolol 20 mg tablet 20 mg PO DAILY Patient Comments: TAKE 1 TABLET BY MOUTH TWICE A DAY Referrals / Follow Up: Care Physician,No Primary [Primary Care Provider] - Disposition Disposition (needs filled in before D/C Order can be placed): Home, Self Care Charges/Coding Visit Charges Inpatient E&M: 43514 Disch Hosp >30min
== END 2023-10-03 12:14 | disposition home or self-care (01) | DRG 897 ==
LOC: ED 17:23 → MS3 18:55
PROVIDERS: Admitting Provider Internal Medicine; Emergency Provider Student in an Organized Health Care Education/Training Program; Visit Provider Family Medicine
DX: F11.13 Opioid abuse with withdrawal (principal); F15.90 Other stimulant use, unspecified, uncomplicated; F13.130 Sedative, hypnotic or anxiolytic abuse with withdrawal, uncomplicated; I07.1 Rheumatic tricuspid insufficiency; F17.290 Nicotine dependence, other tobacco product, uncomplicated; Y90.0 Blood alcohol level of less than 20 mg/100 ml; G89.29 Other chronic pain; R07.9 Chest pain, unspecified; Z79.2 Long term (current) use of antibiotics; Z86.19 Personal history of other infectious and parasitic diseases; Z86.711 Personal history of pulmonary embolism
CPT/HCPCS: 71045; 80048; 80307; 80320; 84484; 85025; 93005; 94668; 99284; A4216; G0480